=== PATIENT | female | born 1960 | race Caucasian/White ===

== ENCOUNTER 2017-10-29 20:15 | Inpatient (IN) | END 2017-10-31 16:52 | disposition home or self-care (01) | DRG 310 ==

== ENCOUNTER 2017-11-27 01:49 | Emergency (ER) | END 2017-11-27 03:21 | disposition home or self-care (01) ==

== ENCOUNTER 2017-12-21 10:43 | Observation (INO) | END 2017-12-22 18:44 | disposition home or self-care (01) ==

== ENCOUNTER → 2018-12-08 | Outpatient (CLI) | payer OTHER ==
[~2018-12-08] MED LIST: ATOR40TA68 PO; DICY10CA40 PO; LEVO125T7 PO; RIVA20TA5 PO; SOTA80TA18 PO
== END | disposition home or self-care (01) ==
LOC: LAB 14:21
PROVIDERS: ATTEND Nuclear Medicine Nuclear Cardiology
DX: R94.39 Abnormal result of other cardiovascular function study (principal)
CPT/HCPCS: 82565; 84520

== ENCOUNTER → 2018-12-29 | Outpatient (CLI) | payer OTHER ==
[~2018-12-29] MED LIST changes: +HYDR-4011 PO; +IOHEXOL 100 ML ONE; +METOPROLOL 5 MG INJ ONE; +NAPR-985 PO; +NITROGLYCERIN AEROSOL (4.9 GM) ONE; +SOD CHLORIDE 0.9% 100 ML ONE
== END | disposition home or self-care (01) ==
LOC: C/S 09:59
PROVIDERS: ATTEND Nuclear Medicine Nuclear Cardiology
DX: R94.39 Abnormal result of other cardiovascular function study (principal)
CPT/HCPCS: 75571; 75574; Q9967; Z7610